=== PATIENT | male | born 1985 | race Caucasian/White ===

== ENCOUNTER 2021-09-02 11:59 | Day surgery (SDC) | payer OTHER ==
[~2021-09-02] VITALS: Ht 177.8 cm; Wt 90.0 kg
[2021-09-02 12:52] VITALS: BP 138/78; PULSE 80; TEMP 98.1
[2021-09-02] MEDS ORDERED: MOBIC15 MG PO (13:11)
[2021-09-02 15:35] VITALS: BP 134/71; PULSE 82; TEMP 97.8
--- NOTE | 2021-09-02 15:35 | NUR ---
Patient arrived back into [facility] from PACU. Report received. Patient doing well. Denies pain or nausea. Tolerating ice chips.
[2021-09-02 15:50] VITALS: BP 138/75; PULSE 70; TEMP 98
--- NOTE | 2021-09-02 15:50 | NUR ---
Patient doing well. Tolerated food and drink well. No complaint of pain or nausea. Vital signs stable. Requesting vanilla pudding and sprite.
[2021-09-02 16:05] VITALS: BP 130/89; PULSE 75
--- NOTE | 2021-09-02 16:05 | NUR ---
Patient tolerated food and drink well. Denies pain or nausea. States he would like to use the restroom. IV removed without complications. Vital signs stable. Patient got up unassisted to restroom and ambulated with walker. Patient able to void successfully.
[2021-09-02 16:12] VITALS: BP 135/80; PULSE 79
--- NOTE | 2021-09-02 16:25 | NUR ---
Patient dress and ready to go. Went through discharge instructions with patient, questions answered. Called and stated she could be here at 1630. Patient escorted to patient entrance via wheelchair. Met at entrance and patient got into personal vehicle unassisted. Patient left in the care of his , Sabi.
== END 2021-09-02 16:30 | disposition home or self-care (01) ==
LOC: SDCO 11:59
DX: M70.42 Prepatellar bursitis, left knee (principal); Z79.1 Long term (current) use of non-steroidal anti-inflammatories (NSAID)
CPT/HCPCS: J0690; J1100; J2405; J2704; J3010; J7120